=== PATIENT | female | born 1955 | race Caucasian/White ===

== ENCOUNTER 2018-09-11 15:59 | Outpatient (REF) | payer MEDICAID, SELFPAY ==
[2018-09-11 20:49] LABS: Anion Gap 8.7 mmol/L (3-11); BUN 11 mg/dL (7-18); CO2 28.3 mmol/L (21.0-32.0); CREATININE 1.22 mg/dL (0.55-1.02); Calcium 9.3 mg/dL (8.5-10.1); Chloride 105 mmol/L (98-107); Estimated GFR 44.81 (mL/min/1.73m2); Glucose 117 mg/dL (70-100); Potassium 4.4 mmol/L (3.5-5.1); Sodium 142 mmol/L (136-145); TSH (W/Ref FT4) 4.06 uIU/mL (0.358-3.74)
[2018-09-11 21:07] LABS: FREE T4 1.04 ng/dL (0.76-1.46)
== END 2018-09-11 16:19 ==
LOC: LBN 15:59
PROVIDERS: PCP Internal Medicine; Visit Provider Internal Medicine
DX: E03.9 Hypothyroidism, unspecified (principal); R03.0 Elevated blood-pressure reading, without diagnosis of hypertension
CPT/HCPCS: 80048; 84439; 84443

== ENCOUNTER 2018-09-30 10:26 | Outpatient (CLI) | payer MEDICAID, SELFPAY ==
--- NOTE | 2018-09-30 13:04 | DI.US_ITS ---
SYMPTOM/DIAGNOSIS: ELEVATED SERUM CREATININE, R79.89 RENAL ULTRASOUND: Routine examination. The right kidney measures 11 cm. long. The left kidney measures 12 cm. long. No renal mass, calculus or obstruction is seen. There is blood flow to both kidneys. Prevoid urinary bladder volume is 340 cc's. Postvoid urinary bladder volume is approximately 13 cc's. The bladder wall appeared smooth. No intraluminal masses were present. Both ureteral jets were visualized. IMPRESSION: Normal renal ultrasound.
[2018-09-30 15:17] LABS: ESR 18 MM/HR (0-30)
[2018-09-30 15:25] LABS: Uric Acid 4.5 mg/dL (2.6-6.0)
[2018-10-01 12:04] LABS: Albumin 54.6 % (55.8-66.1); Total Protein 7.3 g/dl (6.3-8.2)
[2018-10-01 18:29] LABS: Myeloperoxidase Ab IgG <0.2 U; Proteinase 3 Ab (PR3) <0.2 U
== END 2018-09-30 10:46 ==
PROVIDERS: PCP Internal Medicine; Visit Provider Internal Medicine
DX: R79.89 Other specified abnormal findings of blood chemistry (principal); R79.9 Abnormal finding of blood chemistry, unspecified; N18.9 Chronic kidney disease, unspecified
CPT/HCPCS: 36415; 76770; 85652; 82565; 83516; 84156; 84165; 84550

== ENCOUNTER 2018-10-01 12:02 | Outpatient (REF) | payer MEDICAID, SELFPAY ==
[2018-10-01 13:17] LABS: PROTEIN < 6.0 mg/dL
[2018-10-01 13:44] LABS: COMMENT (LAB VIEW ONLY) 81.02 mg/dL
[2018-10-08 16:06] LABS: Albumin 100 %; Total Protein 6 mg/dL
== END 2018-10-01 12:22 ==
LOC: LBN 12:02
PROVIDERS: PCP Internal Medicine; Visit Provider Internal Medicine
DX: R79.89 Other specified abnormal findings of blood chemistry (principal)
CPT/HCPCS: 84156; 84166; 86335; 82565

== ENCOUNTER 2020-04-06 03:12 | Outpatient (CLI) | payer SELFPAY ==
[2020-04-06 11:55] LABS: Anion Gap 4.1 mmol/L (3-11); BUN 9 mg/dL (7-18); CO2 28.9 mmol/L (21.0-32.0); CREATININE 0.75 mg/dL (0.55-1.02); Calcium 9.5 mg/dL (8.5-10.1); Chloride 107 mmol/L (98-107); Glucose 117 mg/dL (74-106); Potassium 4.5 mmol/L (3.5-5.1); Sodium 140 mmol/L (136-145); TSH (W/Ref FT4) 0.24 uIU/mL (0.36-3.74)
[2020-04-06 19:42] LABS: FREE T4 1.27 ng/dL (0.76-1.46)
== END 2020-04-06 03:32 ==
PROVIDERS: PCP Internal Medicine; Visit Provider Internal Medicine
DX: E03.9 Hypothyroidism, unspecified (principal); R79.89 Other specified abnormal findings of blood chemistry
CPT/HCPCS: 36415; 80048; 84439; 84443

== ENCOUNTER 2020-09-29 08:18 | Outpatient (CLI) | payer SELFPAY ==
--- NOTE | 2020-09-29 10:53 | DI.RAD_ITS ---
EXAM: XR ANKLE RT COMPLETE CLINICAL HISTORY: f/u. TECHNIQUE: 2D digital imaging was performed. COMPARISON: CR XR ANKLE RT COMPLETE from 08/16/2020 FINDINGS: Fracture of the distal fibula appears unchanged. No callus formation. No further displacement. IMPRESSION: DATA REPOSITORY: RADIATION DOSE DELIVERED:
== END 2020-09-29 08:19 | disposition home or self-care (01) ==
LOC: DIORS 09-30 08:19
PROVIDERS: PCP Internal Medicine; Visit Provider Student in an Organized Health Care Education/Training Program
DX: S82.831D Other fracture of upper and lower end of right fibula, subsequent encounter for closed fracture with routine healing (principal)
CPT/HCPCS: 73610

== ENCOUNTER 2021-04-12 03:24 | Outpatient (CLI) | payer SELFPAY ==
[2021-04-12 11:30] LABS: TSH (W/Ref FT4) 0.34 uIU/mL (0.36-3.74)
== END 2021-04-12 03:25 | disposition home or self-care (01) ==
LOC: LBO 03:24
PROVIDERS: PCP Internal Medicine; Visit Provider Internal Medicine
DX: E03.9 Hypothyroidism, unspecified (principal)
CPT/HCPCS: 36415; 84439; 84443

== ENCOUNTER 2022-05-26 02:05 | Outpatient (CLI) | payer MEDICARE, SELFPAY ==
--- OUTSIDE RECORDS SUMMARY | 2022-05-26 02:09 | XMS_ITS | Clinical Summary ---
:1955 Author Organization [facility] Address [address] [place] [address] Care Team Providers Name Role Phone Unknown, Provider Primary Care Provider Unknown, Provider Unavailable Social History Tobacco Use Types Packs/Day Years Used Date Never Assessed Sex Assigned at Date Recorded Not on file Plan of Treatment Not on file Care Teams Head Of Visual Merchandising Relationship Specialty Start Date End Date Unknown, ProviderMD PCP - General 03/06/19 Unknown, ProviderMD 03/06/19
--- OUTSIDE RECORDS SUMMARY | 2022-05-26 02:09 | XMS_ITS | Encounter Summary ---
:1955 Author Organization [facility] Address [address] [place] [address] Care Team Providers Name Role Phone Unavailable Primary Care Provider Unavailable Encounter Details Date Type Department Care Team Description 08/22/2010 Results Only [facility] Sandra Aleman, YOUTH CARE SPECIALIST Laboratory Services - [address] [place] [address] [place] [address] [place] [address] [phone] Social History Tobacco Use Types Packs/Day Years Used Date Never Assessed Sex Assigned at Date Recorded Not on file documented as of this encounter Plan of Treatment Not on filedocumented as of this encounter Procedures Procedure Name Priority Date/Time Associated Diagnosis Comme [facility] CYTOPATHOLOGY Routine 08/22/2010 0:00 EST Results for this procedure are i n the results section . documented in this encounter Results CYTOPATHOLOGY (08/22/2010 0:00 EST) Pathology Report: CYTOPATHOLOGY REPORT ? [facility] Reports generated via [employer] interface contain original data; ? however they are lacking the format of the original report. ? Caution should be taken when reading/interpreting unformatted reports. ? Name: ? ALYSHAALBER Cleveland ? Accession #: ? [id number] ? : ? 1955 (Age: 55) ??F ?Collect Date: ? 08/22/2010 ? Location: ? [facility] ? Receive Date: ? 08/24/2010 ? Provider: ?ELAINE MARROQUIN APRN ? Copy to: ? Specimen/Source: ? Pap Test, Cervix, ThinPrep Imaging System with manual ?? evaluation ? Last Menstrual Period: ? 07/22/2010 ? SPECIMEN ADEQUACY ? Satisfactory for Eval uation ? - transformation zone compon ent absent ? GENERAL CATEGORIZATION ? Negative for Intraepi thelial Lesion or Malignancy ? Document reviewed and electr onically signed by: ? Karen Shah, SCT( ASCP) ? Report Date: ??2010 14:32 ? End of Report ? Specimen Performing Organization Address City/State/ZIP Code Phon e Number [facility] [address] [place] [address] SERVICES [facility] [address] [place] [address] documented in this encounter Visit Diagnoses Not on filedocumented in this encounter
--- OUTSIDE RECORDS SUMMARY | 2022-05-26 02:10 | XMS_ITS | Encounter Summary ---
:1955 Author Organization [facility] Address [address] [place] [address] Care Team Providers Name Role Phone Unavailable Primary Care Provider Unavailable Encounter Details Date Type Department Care Team Description 05/10/2004 Hospital Encounter [facility] - Rolo Jeffrey MD Other [address] [facility] ,[place] [address] [place], [place] [id number] [place] [phone] (Wo rk) Social History Tobacco Use Types Packs/Day Years Used Date Never Assessed Sex Assigned at Date Recorded Not on file documented as of this encounter Discharge Disposition Disposition Code Departure Means Destination Auto Discharge documented in this encounter Plan of Treatment Not on filedocumented as of this encounter Visit Diagnoses Not on filedocumented in this encounter
--- OUTSIDE RECORDS SUMMARY | 2022-05-26 02:10 | XMS_ITS | Encounter Summary ---
:1955 Author Organization [facility] Address [address] [place] [address] Care Team Providers Name Role Phone Unavailable Primary Care Provider Unavailable Encounter Details Date Type Department Care Team Description 08/19/2007 Results Only [facility] Gregor Pettit MD [address] [facility] [place] [address] [address] [phone] Social History Tobacco Use Types Packs/Day Years Used Date Never Assessed Sex Assigned at Date Recorded Not on file documented as of this encounter Plan of Treatment Not on filedocumented as of this encounter Procedures Procedure Name Priority Date/Time Associated Diagnosis Comme nts CYTOPATHOLOGY Routine 08/19/2007 0:00 EST Results for this procedure are i n the results section . documented in this encounter Results CYTOPATHOLOGY (08/19/2007 0:00 EST) Pathology Report: CYTOPATHOLOGY REPORT [facility] Reports generated via electronic interface contain ivonne ginal data; however they are lacking the format of the original re port. Caution should be taken when reading/interpreting unfo rmatted reports. Name: ? ALBER ENCARNACION ? Accession #: ? [id number] : ? 1955 (Age: 52) ??F ?Collect Date: ? 02/2008 Location: ? [facility] ? Receive Date : ? 08/23/2007 Provider: ?GREGOR GAMEZ MD Copy to: ? Specimen/Source: ?ThinPrep Pap Test, E ndocervix, processed on [employer] ThinPrep Imaging System, with manual evaluation Last Menstrual Period: ? Other: ? HPVA - HPV testing requested if ASC-US on the current ThinPrep Pap test. ? SPECIMEN ADEQUACY ? Satisfactory for Evaluation - transformation zone component present GENERAL CATEGORIZATION ? Negative for Intraepithelial Lesion or Malignan cy ? Document reviewed and electronically signed by: ? JOESPH SANTIAGO MD ? Report Date: ??08/28/2007 15:26 End of Report Specimen Performing Organization Address City/State/ZIP Code Phon e Number [facility] [address] [place] [address] SERVICES [facility] [address] [place] [address] documented in this encounter Visit Diagnoses Not on filedocumented in this encounter
--- OUTSIDE RECORDS SUMMARY | 2022-05-26 02:10 | XMS_ITS | Encounter Summary ---
:1955 Author Organization [facility] Address [address] [place] [address] Care Team Providers Name Role Phone Unavailable Primary Care Provider Unavailable Encounter Details Date Type Department Care Team Description 08/19/2007 Hospital Encounter [facility] - Rolo Jeffrey MD Other [address] [facility] ,[place] [address] [place], [place] [id number] [place] [phone] (Wo rk) Social History Tobacco Use Types Packs/Day Years Used Date Never Assessed Sex Assigned at Date Recorded Not on file documented as of this encounter Discharge Disposition Disposition Code Departure Means Destination Home or Self Care documented in this encounter Plan of Treatment Not on filedocumented as of this encounter Visit Diagnoses Not on filedocumented in this encounter
[2022-05-26 09:56] LABS: Calculated LDL 119 mg/dL (<100); Cholesterol 199 mg/dL (<200); HDL Cholesterol 58 mg/dL (40-60); TSH (W/Ref FT4) 1.52 uIU/mL (0.36-3.74); Triglyceride 114 mg/dL (<150)
[2022-05-29 11:03] LABS: Hepatitis C Ab w Rflx HCV PCR Negative (Negative)
[2022-05-29 11:26] LABS: HIV-1/2 Ag & Ab Screen Negative (Negative)
== END 2022-05-26 02:06 | disposition home or self-care (01) ==
PROVIDERS: PCP Internal Medicine; Referring Provider Internal Medicine; Visit Provider Internal Medicine
DX: E05.00 Thyrotoxicosis with diffuse goiter without thyrotoxic crisis or storm (principal); E78.5 Hyperlipidemia, unspecified; Z82.49 Family history of ischemic heart disease and other diseases of the circulatory system; E03.9 Hypothyroidism, unspecified; Z11.4 Encounter for screening for human immunodeficiency virus [HIV]; Z11.59 Encounter for screening for other viral diseases
CPT/HCPCS: 36415; 80061; 86803; 87389; 84443

== ENCOUNTER 2023-08-20 04:15 | Outpatient (CLI) | payer MEDICARE, SELFPAY ==
[2023-08-20 08:24] LABS: Hemoglobin A1C 5.7 % (<5.7)
[2023-08-20 08:47] LABS: Anion Gap 4.9 mmol/L (3-11); BUN 20 mg/dL (7-18); CO2 29.1 mmol/L (21.0-32.0); CREATININE 0.9 mg/dL (0.55-1.02); Calcium 9.1 mg/dL (8.5-10.1); Calculated LDL 153 mg/dL (<100); Chloride 103 mmol/L (98-107); Cholesterol 231 mg/dL (<200); Estimated GFR 70.51 (mL/min/1.73m2); Glucose 109 mg/dL (74-106); HDL Cholesterol 57 mg/dL (40-60); Potassium 4.5 mmol/L (3.5-5.1); Sodium 137 mmol/L (136-145); TSH (W/Ref FT4) 0.23 uIU/mL (0.36-3.74); Triglyceride 109 mg/dL (<150)
[2023-08-20 09:30] LABS: FREE T4 1.52 ng/dL (0.76-1.46)
== END 2023-08-20 04:16 | disposition home or self-care (01) ==
LOC: LBO 04:15
PROVIDERS: PCP Nurse Practitioner Adult Health; Referring Provider Nurse Practitioner Adult Health; Visit Provider Nurse Practitioner Adult Health
DX: E03.9 Hypothyroidism, unspecified (principal); E78.5 Hyperlipidemia, unspecified; K21.9 Gastro-esophageal reflux disease without esophagitis; Z13.1 Encounter for screening for diabetes mellitus; R73.03 Prediabetes
CPT/HCPCS: 36415; 80048; 80061; 83036; 84439; 84443

== ENCOUNTER → 2023-11-05 14:07 | Outpatient (CLI) | payer MEDICARE, SELFPAY ==
--- NOTE | 2023-11-05 14:00 | DI.RAD_ITS ---
Exam(s) XR CHEST 2V PA LATERAL EXAM: XR CHEST 2V PA LATERAL CLINICAL HISTORY: acute process at left base in particular, crackles, R09.89, cough, R05.9 TECHNIQUE: 2D digital imaging was performed. Two views. COMPARISON: No exams were available for comparison FINDINGS: HEART: Normal size. Aorta: Not dilated. PULMONARY VASCULATURE: Normal. LUNGS: Streaky densities seen on PA view medial to the right heart border which could represent scarr ing versus infiltrate in the right middle lobe. No abnormalities seen in the left lower lobe. PLEURAL SPACE: No pleural effusion or pneumothorax. BONE:Unremarkable for age. Soft tissues: Unremarkable. IMPRESSION: Question right middle lobe infiltrate versus atelectasis or scarring. DATA REPOSITORY: RADIATION DOSE DELIVERED:
== END ==
PROVIDERS: PCP Nurse Practitioner Adult Health; Visit Provider Nurse Practitioner Adult Health
DX: R09.89 Other specified symptoms and signs involving the circulatory and respiratory systems (principal); R05.9 Cough, unspecified
CPT/HCPCS: 71046

== ENCOUNTER 2024-02-28 02:38 | Outpatient (CLI) | payer MEDICARE, SELFPAY ==
[2024-02-28 17:14] LABS: FREE T4 1.27 ng/dL (0.76-1.46); TSH 0.28 uIU/Ml (0.36-3.74)
== END 2024-02-28 02:39 | disposition home or self-care (01) ==
LOC: LBO 02:38
PROVIDERS: PCP Nurse Practitioner Adult Health; Referring Provider Nurse Practitioner Adult Health; Visit Provider Nurse Practitioner Adult Health
DX: E03.9 Hypothyroidism, unspecified (principal)
CPT/HCPCS: 36415; 84439; 84443